=== PATIENT | male | born 1985 | race African-American/Black ===

== ENCOUNTER 2021-07-10 16:39 | Emergency (ER) | payer MEDICARE, MEDICAID, OTHER ==
[~2021-07-10] VITALS: Ht 182.9 cm; Wt 99.8 kg
[2021-07-10 16:39] VITALS: BP 137/79
[2021-07-10] MEDS ORDERED: IBUPROFEN 600 MG TAB PO ONE (17:30)
[2021-07-10 18:53] LABS: Basophils # (auto) 0.1 10 ^3/uL (0-0.2); Basophils % (auto) 0.5 % (0.0-2.0); Eosinophils # (auto) 0.1 10 ^3/uL (0-0.8); Eosinophils % (auto) 0.5 % (0.0-7.0); Hematocrit 50.7 % (41.0-53.0); Hemoglobin 16.5 g/dL (13.5-17.5); Lymphocytes # (auto) 1.3 10 ^3/uL (0.4-5.4); Lymphocytes % (auto) 12.5 % (10.0-50.0); Mean Corpuscular Hemoglobin 26.6 pg (28.0-32.0); Mean Corpuscular Hgb Conc. 32.7 g/dL (32.0-36.0); Mean Corpuscular Volume 81.5 fL (80.0-100.0); Monocytes # (auto) 0.8 10 ^3/uL (0-1.3); Monocytes % (auto) 7.6 % (0.0-12.0); Neutrophils # (auto) 8.4 10 ^3/uL (1.6-8.6); Neutrophils % (auto) 78.9 % (37.0-80.0); Nucleated Red Blood Cells % 0.1 %; Red Blood Cells 6.21 10^6/uL (4.5-5.90); Red Cell Distribution Width 14.9 % (11.8-14.3); White Blood Cell 10.6 10^3/uL (4.4-10.8)
[2021-07-10] MEDS ORDERED: levETIRAcetam 500 MG TAB PO ONE (19:00)
[2021-07-10 19:34] LABS: Anion Gap 2 (5-15); Blood Urea Nitrogen 13 mg/dL (7-18); Calcium 9.5 mg/dL (8.5-10.1); Carbon Dioxide 29 mmol/L (21-32); Chloride 104 mmol/L (98-107); Glucose 101 mg/dL (74-106); Lipase 118 U/L (73-393); Magnesium 2.5 mg/dL (1.6-2.6); Potassium 5.2 mmol/L (3.5-5.1); Sodium 135 mmol/L (136-145)
[2021-07-10 19:46] LABS: Alanine Aminotransferase 50 U/L (16-61); Alkaline Phosphatase 73 U/L (45-117); Aspartate Aminotransferase 22 U/L (15-37); BUN/Creatinine Ratio 12.5; Bilirubin, Total 0.2 mg/dL (0.2-1.0); GFR African American 105 mL/min; GFR Non-African American 86 mL/min; Total Protein 8.3 g/dL (6.4-8.2)
== END 2021-07-10 21:42 | disposition home or self-care (01) ==
LOC: ER 16:39 → EDBD 16:39 → ER 21:42
DX: S00.212A Abrasion of left eyelid and periocular area, initial encounter (principal); G40.909 Epilepsy, unspecified, not intractable, without status epilepticus; F17.210 Nicotine dependence, cigarettes, uncomplicated; F12.10 Cannabis abuse, uncomplicated; R42 Dizziness and giddiness; V43.52XA Car driver injured in collision with other type car in traffic accident, initial encounter; Y93.89 Activity, other specified; Y92.89 Other specified places as the place of occurrence of the external cause; Y99.8 Other external cause status
CPT/HCPCS: 36415; 70450; 71045; 72125; 72170; 73590; 80053; 80320; 83690; 83735; 84484; 85025; 93005

== ENCOUNTER 2022-07-22 17:25 | Emergency (ER) | payer MEDICARE, MEDICAID ==
[~2022-07-22] VITALS: Ht 180.3 cm; Wt 102.0 kg
[2022-07-22 17:51] VITALS: BP 125/70
== END 2022-07-22 21:45 | disposition left against medical advice (07) ==
LOC: ER 17:25
DX: M79.672 Pain in left foot (principal); Z53.21 Procedure and treatment not carried out due to patient leaving prior to being seen by health care provider

== ENCOUNTER 2024-07-05 11:09 | Emergency (ER) | payer MEDICAID, MEDICARE ==
[~2024-07-05] VITALS: Ht 180.3 cm; Wt 109.0 kg
[2024-07-05] MEDS: SODIUM CHLORIDE 0.9% 1,000 ML IV ONE (11:15)
[2024-07-05 11:45] LABS: Basophils # (auto) 0.1 10 ^3/uL (0-0.2); Basophils % (auto) 1.1 % (0.0-2.0); Eosinophils # (auto) 0.1 10 ^3/uL (0-0.8); Eosinophils % (auto) 1.8 % (0.0-7.0); Hematocrit 47.6 % (41.0-53.0); Lymphocytes # (auto) 1.6 10 ^3/uL (0.4-5.4); Lymphocytes % (auto) 25.1 % (10.0-50.0); Mean Corpuscular Hemoglobin 27.3 pg (28.0-32.0); Mean Corpuscular Hgb Conc. 33.7 g/dL (32.0-36.0); Monocytes # (auto) 0.4 10 ^3/uL (0-1.3); Monocytes % (auto) 6.2 % (0.0-12.0); Neutrophils # (auto) 4.2 10 ^3/uL (1.6-8.6); Neutrophils % (auto) 65.8 % (37.0-80.0); Nucleated Red Blood Cells % 0.1 %; Platelet Count (auto) 243 10^3/uL (140-450); Red Blood Cells 5.88 10^6/uL (4.5-5.90); Red Cell Distribution Width 15.6 % (11.8-14.3); White Blood Cell 6.3 10^3/uL (4.4-10.8)
[2024-07-05 11:59] LABS: Chloride 105 mmol/L (98-107); Potassium 4.1 mmol/L (3.5-5.1); Sodium 137 mmol/L (136-145)
[2024-07-05 12:00] LABS: Anion Gap 4 (5-15); Carbon Dioxide 28 mmol/L (20-31)
[2024-07-05 12:01] LABS: Calcium 9.9 mg/dL (8.7-10.4)
[2024-07-05 12:05] LABS: Glucose 106 mg/dL (74-106)
[2024-07-05 12:06] LABS: BUN/Creatinine Ratio 9.8 (10.0-20.0); Blood Urea Nitrogen 11 mg/dL (9-23)
[2024-07-05] MEDS ORDERED: LORazepam 0.5 MG TAB PO PRN (17:45)
[2024-07-06] MEDS: ACETAMINOPHEN 325 MG TAB PO ONE (00:29)
[2024-07-06] MEDS: traZODone HCL 50 MG TAB PO ONE (00:29)
[2024-07-06 08:26] VITALS: PULSE 73; RESP 16; O2SAT 96
[2024-07-06] MEDS: FLUoxetine HCL 20 MG CAP PO SCH (11:26)
[2024-07-06] MEDS: OLANZapine 5 MG TAB PO SCH (11:26)
[2024-07-06 18:44] VITALS: BP 132/73; PULSE 72; RESP 18; TEMP 98.5; O2SAT 97
== END 2024-07-06 19:01 | disposition short-term general hospital (02) ==
LOC: EDBD 11:09 → ER 11:09
DX: F29 Unspecified psychosis not due to a substance or known physiological condition (principal); F20.9 Schizophrenia, unspecified; Z86.73 Personal history of transient ischemic attack (TIA), and cerebral infarction without residual deficits
CPT/HCPCS: 36415; 80048; 85025; 96360; 99285; J7030

== ENCOUNTER 2024-12-26 23:18 | Emergency (ER) | payer MEDICARE, MEDICAID ==
[~2024-12-26] VITALS: Ht 180.3 cm; Wt 107.9 kg
[2024-12-26 23:45] LABS: Basophils # (auto) 0.1 10 ^3/uL (0-0.2); Eosinophils # (auto) 0.1 10 ^3/uL (0-0.8); Hemoglobin 14.6 g/dL (13.5-17.5); Monocytes # (auto) 0.5 10 ^3/uL (0-1.3); Nucleated Red Blood Cells % 0.1 %; Platelet Count (auto) 273 10^3/uL (140-450); White Blood Cell 6.2 10^3/uL (4.4-10.8)
[2024-12-26 23:47] LABS: Basophils % (auto) 1.8 % (0.0-2.0); Eosinophils % (auto) 1.5 % (0.0-7.0); Hematocrit 44.7 % (41.0-53.0); Mean Corpuscular Hemoglobin 26.6 pg (28.0-32.0); Mean Corpuscular Hgb Conc. 32.7 g/dL (32.0-36.0); Mean Corpuscular Volume 81.3 fL (80.0-100.0); Monocytes % (auto) 7.8 % (0.0-12.0); Neutrophils # (auto) 3.6 10 ^3/uL (1.6-8.6); Neutrophils % (auto) 56.9 % (37.0-80.0); Red Cell Distribution Width 14.5 % (11.8-14.3)
[2024-12-26 23:56] LABS: Chloride 105 mmol/L (98-107); Potassium 4.3 mmol/L (3.5-5.1); Sodium 138 mmol/L (136-145)
[2024-12-26 23:57] LABS: Anion Gap 6 (5-15); Calcium 10.3 mg/dL (8.7-10.4); Carbon Dioxide 27 mmol/L (20-31)
[2024-12-27 00:02] LABS: Blood Urea Nitrogen 11 mg/dL (9-23); Glucose 98 mg/dL (74-106)
[2024-12-27 00:03] LABS: Blood Alcohol < 3.0 mg/dL (<10)
--- NOTE | 2024-12-27 02:13 | ED.PDOC ---
Psychiatric HPI Comments Patient is a pleasant but morbidly obese 39-year-old male who arrives the ED today for evaluation of mental health concerns. Patient denies any SI or HI, but states he has had a hopeless feeling as well as extensive depression and anxiety concerns. Patient states he has been placed in a home while back, but could not tell me why was he was still not placed at that facility. Patient denies any fever nausea or vomiting. Vital signs were stable on arrival. Chief Complaint: Mental Health Time Seen by MD: 23:22 Primary Care Provider: UNKNOWN Reviewed Notes: Nurses Notes Information Source: Patient Mode of Arrival: Ambulatory Severity: Able to Care for Self Severity of Pain: None Severity of Mental Status: Moderate Severity of Symptoms: Moderate Timing: Weeks Duration: Intermittent Presents with: Depression, Anxiety Quality: Hopelessness Past Medical History PAST MEDICAL HISTORY: Schizophrenia, TIA Surgical History: Denies all surgeries Family History Family History: Reviewed,noncontributory to illness, Unknown Social History Smoker: Non-Smoker Alcohol: Denies ETOH Use Drugs: Denies Drug Use Lives In: Home Constitutional: denies: chills, diaphoresis, fatigue, fever, malaise, sweats, weakness, others EENTM: denies: blurred vision, double vision, ear bleeding, ear discharge, ear drainage, ear pain, ear ringing, eye pain, eye redness, hearing loss, mouth pain, mouth swelling, nasal discharge, nose bleeding, nose congestion, nose pain, photophobia, tearing, throat pain, throat swelling, voice changes, others Respiratory: denies: cough, hemoptysis, orthopnea, SOB at rest, shortness of breath, SOB with excertion, stridor, wheezing, others Cardiovascular: denies: chest pain, dizzy spells, diaphoresis, Dyspnea on exertion, edema, irregular heart beat, left arm pain, lightheadedness, palpitations, PND, syncope, others Gastrointestinal: denies: abdomen distended, abdominal pain, blood streaked bowels, constipated, diarrhea, dysphagia, difficulty swallowing, hematemesis, melena, nausea, poor appetite, poor fluid intake, rectal bleeding, rectal pain, vomiting, others Genitourinary: denies: burning, dysuria, flank pain, frequency, hematuria, incontinence, penile discharge, penile sore, pain, testicle pain, testicle swelling, urgency, others Neurological: denies: dizziness, fainting, headache, left sided numbness, left sided weakness, numbness, paresthesia, pre-existing deficit, right sided numbness, right sided weakness, seizure, speech problems, tingling, tremors, weakness, others Musculoskeletal: denies: back pain, gout, joint pain, joint swelling, muscle pain, muscle stiffness, neck pain, others Integumetry: denies: bruises, change in color, change in hair/nails, dryness, laceration, lesions, lumps, rash, wounds, others Allergic/Immunocompromised: denies: Difficulty Healing, Frequent Infections, Hives, Itching, others Hematologic/Lymphatic: denies: anemia, blood clots, easy bleeding, easy bruising, swollen glands, others Endocrine: denies: excessive hunger, excessive sweating, excessive thirst, excessive urination, flushing, intolerance to cold, intolerance to heat, unexplained weight gain, unexplained weight loss, others Psychiatric: reports: anxiety, depression; denies: bipolar disorder, hopeless, panic disorder, schizophrenia, sleepless, suicidal, others Physical Exam General Appearance: Moderate Distress (Patient appears very depressed at time of evaluation.), Obese HEENT: Normal ENT Inspection, Pharynx Normal, TMs Normal Neck: Full Range of Motion, Non-Tender, Normal, Normal Inspection Respiratory: Chest Non-Tender, Lungs Clear, No Accessory Muscle Use, No Respira tory Distress, Normal Breath Sounds Cardiovascular: No Edema, No JVD, No Murmur, No Gallop, Normal Peripheral Pulses, Regular Rate/Rhythm Breast Exam: Deferred Gastrointestinal: No Organomegaly, Non Tender, No Pulsatile Mass, Normal Bowel Sounds, Soft Genitalia: Deferred Pelvic: Deferred Rectal: Deferred Extremities: No calf tenderness, Normal capillary refill, Normal inspection, Normal range of motion, Non-tender, No pedal edema Neurologic: Alert, No Motor Deficits, No Sensory Deficits Cerebellar Function: Normal Reflexes: Normal Skin: Dry, Normal Color, Warm Lymphatic: No Adenopathy Was a procedure done? Was a procedure done?: No Psych Differential Dx Psych. Differential Dx: Anxiety, Bipolar Disorder, Depression, Hopeless X-Ray, Labs, Meds, VS Vital Signs Date Time Temp Pulse Resp B/P (MAP) Pulse Ox O2 Delivery O2 Flow Rate FiO2 12/26/24 23:31 97.7 89 17 147/91 (109) 97 97.7 Lab Test 12/26/24 23:34 Range/Units White Blood Count 6.2 4.4-10.8 10^3/uL Red Blood Count 5.50 4.5-5.90 10^6/uL Hemoglobin 14.6 13.5-17.5 g/dL Hematocrit 44.7 41.0-53.0 % Mean Corpuscular Volume 81.3 80.0-100.0 fL Mean Corpuscular Hemoglobin 26.6 L 28.0-32.0 pg Mean Corpuscular Hemoglobin Concent 32.7 32.0-36.0 g/dL Red Cell Distribution Width 14.5 H 11.8-14.3 % Platelet Count 273 140-450 10^3/uL Mean Platelet Volume 8.6 6.9-10.8 fL Neutrophils (%) (Auto) 56.9 37.0-80.0 % Lymphocytes (%) (Auto) 32.0 10.0-50.0 % Monocytes (%) (Auto) 7.8 0.0-12.0 % Eosinophils (%) (Auto) 1.5 0.0-7.0 % Basophils (%) (Auto) 1.8 0.0-2.0 % Neutrophils # (Auto) 3.6 1.6-8.6 10 ^3/uL Lymphocytes # (Auto) 2.0 0.4-5.4 10 ^3/uL Monocytes # (Auto) 0.5 0-1.3 10 ^3/uL Eosinophils # (Auto) 0.1 0-0.8 10 ^3/uL Basophils # (Auto) 0.1 0-0.2 10 ^3/uL Nucleated Red Blood Cells 0.1 % Sodium Level 138 136-145 mmol/L Potassium Level 4.3 3.5-5.1 mmol/L Chloride Level 105 98-107 mmol/L Carbon Dioxide Level 27 20-31 mmol/L Anion Gap 6 5-15 Blood Urea Nitrogen 11 9-23 mg/dL Creatinine 1.22 0.700-1.30 mg/dL Glomerular Filtration Rate Calc 78 >90 mL/min BUN/Creatinine Ratio 9.0 L 10.0-20.0 Serum Glucose 98 74-106 mg/dL Calcium Level 10.3 8.7-10.4 mg/dL Plasma/Serum Blood Alcohol < 3.0 <10 mg/dL X-Ray, Labs, Meds, VS Comment Studies were pending at time of this note. Patient will remain in the ED until he receives his tele psych consult. We will respond to psychiatric recom mendations. Time of 1ST Reevaluation: 02:12 Reevaluation 1ST: Unchanged Consultation: PCP, Psychiatry Patient Education/Counseling: Diagnosis, Treatment Family Education/Counseling: Diagnosis, Treatment Departure 1 Departure Time of Disposition: 02:12 Impression: Primary Impression: Psychosis Disposition: 30 STILL A PATIENT Condition: Poor Discharged With: Self Critical Care Note Critical Care Time?: No Stability Stability form required: No Heart Score Heart Score: Heart Score Response (Comments) Value History N/A 0 EKG N/A 0 Age N/A 0 Risk Factors N/A 0 Troponin N/A 0 Total 0 JAVIER SLAMERON PAC Dec 27, 2024 02:13
[2024-12-27 06:17] LABS: Urine Bacteria None Seen /hpf (None Seen)
[2024-12-27 06:37] LABS: Urine Blood Negative /uL (Negative); Urine Clarity Clear (Clear); Urine Color Light-Yellow (Yellow); Urine Mucus FEW (None Seen); Urine Protein, UAD Negative (Negative); Urine Specific Gravity 1.016 (1.001-1.035); Urine Squamous Epithelial Cell FEW /hpf (<5); Urine Urobilinogen Normal (Negative); Urine WBC < 1 /HPF (0-3); Urine pH 5.5 (5.0-9.0)
[2024-12-27 07:04] LABS: Cannabinoid Screen, Urine Neg (NEGATIVE)
[2024-12-27 07:13] LABS: Barbiturate Scree,Urine Neg (NEGATIVE); Opiate Scree,Urine Neg (NEGATIVE); Phencyclidine Screen, Urine Pos (NEGATIVE)
[2024-12-27 07:27] LABS: Amphetamine Screen, Urine Pos (NEGATIVE); Benzodiazephine Screen, Urine Neg (NEGATIVE); Cocaine Screen, Urine Neg (NEGATIVE)
[2024-12-27 07:57] VITALS: BP 161/96; TEMP 98.1
[2024-12-27 08:15] VITALS: PULSE 98; RESP 16; O2SAT 95
[2024-12-27] MEDS: HYDROcodone-ACET 10/325MG TAB PO ONE (11:52)
--- NOTE | 2024-12-27 13:48 | DVHINCON2 ---
Date of Service if different f: Dec 27, 2024 Time of Service: 13:15 Consultation ([place]) Labs Laboratory Tests Test 12/26/24 23:27 12/26/24 23:34 Urine Color Light-yellow (Yellow) Urine Clarity Clear (Clear) Urine pH 5.5 (5.0-9.0) Urine Specific Castor 1.016 (1.001-1.035) Urine Protein Negative (Negative) Urine Ketones Negative (Negative) Urine Blood Negative /uL (Negative) Urine Nitrite Negative (Negative) Urine Bilirubin Negative (Negative) Urine Urobilinogen Normal mg/dL (Negative) Urine Leukocyte Esterase Negative /uL (Negative) Urine RBC 1 /hpf (0 - 3) Urine Microscopic WBC < 1 /HPF (0-3) Urine Squamous Epithelial Cells Few /hpf (<5) Urine Bacteria None seen /hpf (None Seen) Urine Mucus Few (None Seen) Urine Glucose Normal mg/dL (Normal) Urine Opiates Screen Neg (NEGATIVE) Urine Fentanyl Screen Neg (NEGATIVE) Urine Barbiturates Screen Neg (NEGATIVE) Urine Phencyclidine Screen Pos (NEGATIVE) Urine Amphetamines Screen Pos (NEGATIVE) Urine Benzodiazepines Screen Neg (NEGATIVE) Urine Cocaine Screen Neg (NEGATIVE) Urine Cannabinoids Screen Neg (NEGATIVE) White Blood Count 6.2 10^3/uL (4.4-10.8) Red Blood Count 5.50 10^6/uL (4.5-5.90) Hemoglobin 14.6 g/dL (13.5-17.5) Hematocrit 44.7 % (41.0-53.0) Mean Corpuscular Volume 81.3 fL (80.0-100.0) Mean Corpuscular Hemoglobin 26.6 pg (28.0-32.0) Mean Corpuscular Hemoglobin Concent 32.7 g/dL (32.0-36.0) Red Cell Distribution Width 14.5 % (11.8-14.3) Platelet Count 273 10^3/uL (140-450) Mean Platelet Volume 8.6 fL (6.9-10.8) Neutrophils (%) (Auto) 56.9 % (37.0-80.0) Lymphocytes (%) (Auto) 32.0 % (10.0-50.0) Monocytes (%) (Auto) 7.8 % (0.0-12.0) Eosinophils (%) (Auto) 1.5 % (0.0-7.0) Basophils (%) (Auto) 1.8 % (0.0-2.0) Neutrophils # (Auto) 3.6 10 ^3/uL (1.6-8.6) Lymphocytes # (Auto) 2.0 10 ^3/uL (0.4-5.4) Monocytes # (Auto) 0.5 10 ^3/uL (0-1.3) Eosinophils # (Auto) 0.1 10 ^3/uL (0-0.8) Basophils # (Auto) 0.1 10 ^3/uL (0-0.2) Nucleated Red Blood Cells 0.1 % Sodium Level 138 mmol/L (136-145) Potassium Level 4.3 mmol/L (3.5-5.1) Chloride Level 105 mmol/L (98-107) Carbon Dioxide Level 27 mmol/L (20-31) Anion Gap 6 (5-15) Blood Urea Nitrogen 11 mg/dL (9-23) Creatinine 1.22 mg/dL (0.700-1.30) Glomerular Filtration Rate Calc 78 mL/min (>90) BUN/Creatinine Ratio 9.0 (10.0-20.0) Serum Glucose 98 mg/dL (74-106) Calcium Level 10.3 mg/dL (8.7-10.4) Plasma/Serum Blood Alcohol < 3.0 mg/dL (<10) Appearance: Stated age Psychomotor activity: WNL Behavioral: Cooperative Eye contact: Appropriate Speech: WNL Affect: Mood Congruent Mood: Depressed, Dysphoric Thought processes: Linear/Goal-directed Thought content: WNL Suicidal ideations: Absent Homicidal ideations: Absent Orientation: Person, Place, Time, Situation Memory intact: Recent Intellect: Average Abstractability: WNL Concentration: Adequate Attention: Adequate Judgement: WNL Insight: Fair Vitals Vital Signs Date Time Temp Pulse Resp B/P (MAP) Pulse Ox O2 Delivery O2 Flow Rate FiO2 12/27/24 08:15 98 16 95 Room Air* 0 21 12/27/24 07:57 98.1 161/96 (117) 98.1 Treatment plan discussed: With staff Medication adjusted: Yes Labs ordered: No Psychotherapy provided: No Type: Voluntary History of Present Illness Reason for Consult : psychiatric evaluation PER ED PHYSICIAN:Patient is a pleasant but morbidly obese 39-year-old male who arrives the ED today for evaluation of mental health concerns. Patient denies any SI or HI, but states he has had a hopeless feeling as well as extensive depression and anxiety concerns. Patient states he has been placed in a home while back, but could not tell me why was he was still not placed at that facility. Patient denies any fever nausea or vomiting. Vital signs were stable on arrival. PSYCHIATRIST HPI: The patient was seen and evaluated at [facility] ED via telepsychiatry platform. 39 yr old male reported "I've been feeling depressed, going through some life changes." He feels like he has been unable to do the things he needs to do. He feels like anything he does, doesn't change things. He noted "I'm trying to get the wrong to stop." He feels like [employer] and [employer] are after him. He said so many laws are being broken on me on a daily basis. He said "I need therapy and someone to talk to because I feel like I don't have access to things that I need." He said he doesn't have a good support group, so needs someone to talk to. He needs help with housing resources as well. He would like to start an antidepressant medication. He reported he feels depressed, hopeless and sometimes has suicidal thoughts and agrees to voluntary admission to [facility]. He denied having HI/AVH. Past Psychiatric History : Diagnosed with depression in past. Hospitalized once a month ago and had been on buspar and trazodone, but hadn't been able to continue the medication. Past Medical History : CHF, "hole in heart", MS (not active), neuropathy in hands and feet Current medications: Gabapentin 300mg TID. NKDA He said he has always taken his medications as needed 'not as prescribed' Substance use: alcohol-occasional use. Infrequent MJ use. "I had messed around with drugs in the past." Last meth use two days ago. Denied use of other substances. Social History : Homeless in [place]. , 3 children. Unemployed. Diagnosis: UNSPECIFIED DEPRESSIVE DISORDER F32.A Formulation: This 39 yr old male appears to suffer from depression and may benefit from starting an antidepressant and sleep medication. He may benefit from transfer to behavioral health unit for further observation, stabilization and treatment. Plan: 1. Transfer to behavioral health unit when bed available. Recommend social worker school consult to discuss housing and outpatient therapy options. If he can be discharged to a crisis house, this might be a good option if BHU is unavailable. 2. Legal-Voluntary status. 3. Medications: Recommend starting Wellbutrin XL 300mg qam and trazodone 50mg qhs for sleep. 4. Case discussed with ED RN, Jennifer. 5. Please recontact psychiatry for further follow up or reevaluation. Assessment/Diagnosis/Plan Reviewed: Labs, Medications, Previous Orders ERIN BARAHONA MD Dec 27, 2024 13:15
[2024-12-27] MEDS ORDERED: traZODone HCL 50 MG TAB PO SCH (22:00)
[2024-12-28] MEDS ORDERED: buPROPion HCL 100 MG TAB PO SCH (07:00)
== END 2024-12-27 19:20 | disposition left against medical advice (07) ==
LOC: ER 23:18
DX: F29 Unspecified psychosis not due to a substance or known physiological condition (principal); F41.9 Anxiety disorder, unspecified; F32.A Depression, unspecified; F20.9 Schizophrenia, unspecified; Z86.73 Personal history of transient ischemic attack (TIA), and cerebral infarction without residual deficits; Z79.899 Other long term (current) drug therapy; Z59.00 Homelessness unspecified
CPT/HCPCS: 36415; 80048; 80307; 80320; 81001; 85025